=== PATIENT | female | born 1995 | race American Indian/Alaskan Native ===

== ENCOUNTER 2021-05-15 08:59 | Emergency (ER) | payer BC ==
[2021-05-15] MEDS ORDERED: ACETAMINOPHEN 325 MG/10.15 ML ORAL LIQD UNIT DOSE PO ONE (11:32)
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
[2021-05-15] MEDS ORDERED: ONDANSETRON 4 MG ODT TAB PO STA (11:57)
[2021-05-15] MEDS ORDERED: AZITHROMYCIN 250 MG TAB PO ONE (11:57)
[2021-05-15] MEDS ORDERED: LIDOCAINE-MPF (1%) 10 MG/1 ML VIAL 5 ML INFILTRATI ONE (11:57)
[2021-05-15 12:27] LABS: Bacteria,Urine 1+ /HPF (Negative); Bilirubin,Urine NEG (Negative); Blood,Urine NEG (Negative); Color,Urine Straw (Yellow); Mucus,Urine FEW /HPF; Protein,Urine <15 mg/dL mg/dL (Negative); RBC,Urine < 1.0 /HPF (0.0-6.0); Urobilinogen,Urine < 2.0 mg/dL (<2.0)
[2021-05-15 13:27] LABS: HCG Qualitative,Urine Negative (Negative)
[2021-05-15] MEDS ORDERED: AZITHROMYCIN 250 MG TAB ONE (14:42)
[2021-05-15] MEDS ORDERED: LIDOCAINE-MPF (1%) 10 MG/1 ML VIAL 5 ML ONE (14:42)
[2021-05-15] MEDS ORDERED: ONDANSETRON 4 MG ODT TAB ONE (14:42)
[2021-05-15] MEDS ORDERED: ACETAMINOPHEN 325 MG TAB ONE (14:42)
[2021-05-15 14:55] VITALS: BP 141/81
== END 2021-05-15 15:16 | disposition home or self-care (01) ==
LOC: ED 08:59
DX: M26.603 Bilateral temporomandibular joint disorder, unspecified (principal); N89.8 Other specified noninflammatory disorders of vagina; Z13.9 Encounter for screening, unspecified; I10 Essential (primary) hypertension; Z98.890 Other specified postprocedural states; Z88.1 Allergy status to other antibiotic agents
CPT/HCPCS: 81001; 81025; 87210; 87591; 96372; 99284; J0696; 99283; Q0162